=== PATIENT | female | born 2005 | race Caucasian/White ===

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

== ENCOUNTER → 2023-01-05 | Outpatient (CLI) | payer BC ==
[2023-01-05 21:35] LABS: Immunoglobulin A 67.8 mg/dL (60.0-350.0)
[2023-01-05 21:44] LABS: % Iron Saturation 27.89 (12.00-45.00); C Reactive Protein <0.30 mg/dL (0.00-0.80); Iron 94 UG/DL (50-170); Total Iron Binding Capacity 337 UG/DL (228-460)
== END | disposition home or self-care (01) ==
LOC: LABWHC1 13:13
PROVIDERS: ATTEND Internal Medicine
DX: K30 Functional dyspepsia (principal)
CPT/HCPCS: 36415; 82728; 82784; 83516; 83540; 83550; 86140

== ENCOUNTER → 2023-09-05 | Outpatient (CLI) | payer BC ==
[2023-09-05 15:38] LABS: Basophils # (A) 0.03 X 10*3/uL (0.00-0.10); Basophils % (A) 0.6 %; Eosinophils % (A) 2.1 %; HCT 41.4 % (37.2-46.3); HGB 13.6 g/dL (12.0-15.0); Lymphocytes # (A) 2.23 X 10*3/uL (0.90-5.00); Lymphocytes % (A) 45.9 %; MCHC 32.9 g/dL (32.0-37.0); MCV 88.3 FL (80.0-97.0); Mean Platelet Volume 9.6 FL (9.5-12.2); Monocytes # (A) 0.33 X 10*3/uL (0.20-1.00); Monocytes % (A) 6.8 %; NRBC Per 100 WBC 0 X 10*3/uL (0.00-0.01); Neutrophils # (A) 2.16 X 10*3/uL (1.80-7.70); Neutrophils % (A) 44.4 %; Platelet Count 244 X 10*3/uL (140-440); RBC 4.69 X 10*6/uL (4.10-5.20); RDW 12.4 % (11.5-14.5); WBC 4.86 X 10*3/uL (4.50-10.00)
[2023-09-05 16:31] LABS: % Iron Saturation 13.73 (12.00-45.00); Chol/HDL Ratio 2.69 Ratio; Iron 49 UG/DL (50-170); Total Iron Binding Capacity 357 UG/DL (228-460); VLDL Calculation 7.36 mg/dL (5.00-40.00)
[2023-09-05 16:32] LABS: ALT 14 U/L (8-44); AST 15 U/L (13-35); Albumin 4.3 g/dL (3.8-4.9); Albumin/Globulin Ratio 2.05 Ratio (1.60-3.17); Alkaline Phosphatase 69 U/L (41-126); BUN/Creat Ratio 31.29 Ratio (12.00-20.00); Blood Urea Nitrogen 21.9 mg/dL (9.0-27.0); Calcium 9.4 mg/dL (8.7-10.3); Carbon Dioxide 23.6 mmol/L (21.6-31.8); Chloride 108 mmol/L (96-109); Ferritin 89.6 ng/mL (10.0-291.0); Globulin 2.1 g/dL (1.6-3.3); Glucose 104 mg/dL (70-110); LDL Cholesterol,Calculated 94.3 mg/dL (0.0-131.0); Potassium 4.1 mmol/L (3.5-5.5); Sodium 143 mmol/L (135-145); T4, Free (Free Thyroxine) 1.22 ng/dL (0.83-1.43); Total Bilirubin 0.3 mg/dL (0.3-1.2); Total Protein 6.4 g/dL (6.2-8.2)
[2023-09-05 18:20] LABS: C-Peptide 2.42 ng/mL (0.81-3.85)
[2023-09-06 15:30] LABS: Zinc, Serum 74 ug/dL (60-130)
== END | disposition home or self-care (01) ==
LOC: LABWHC1 08:11
PROVIDERS: ATTEND Surgery
DX: E66.01 Morbid (severe) obesity due to excess calories (principal)
CPT/HCPCS: 36415; 80053; 80061; 82306; 82525; 82607; 82728; 82746; 83036; 83540; 83550; 83970; 84134; 84207; 84425; 84439; 84443; 84481; 84590; 84591; 84630; 84681; 85025

== ENCOUNTER → 2023-09-05 | Outpatient (CLI) | payer BC ==
--- NOTE | 2023-09-05 08:24 | US ---
EXAMINATION TYPE: US abdomen complete DATE OF EXAM: 09/05/2023 COMPARISON: 12/09/2022 CLINICAL INDICATION: Female, 17 years old with history of E66.01 MORBID (SEVERE) OBESITY DUE TO EXCES S CALOR; gastric bypass surgery pre-op imaging TECHNIQUE: Multiple sonographic images of the abdomen are obtained. FINDINGS: EXAM MEASUREMENTS: Liver Length: 16.9 cm Gallbladder Wall: 0.3 cm CBD: 0.4 cm Spleen: 11.9 cm Right Kidney: 10.9x3.5x6.1 cm Left Kidney: 9.5x4.8x6.2 cm NEUROLOGICAL PHYSIOTHERAPIST NOTES: Pancreas: Tail obscured by overlying bowel gas Liver: increased echogenicity Gallbladder: wnl Evidence for sonographic Jensen's sign: No CBD: wnl Spleen: wnl Right Kidney: No hydronephrosis or masses seen Left Kidney: No hydronephrosis or masses seen Upper IVC: wnl Abd Aorta: proximal region obscured by bowel gas exam limited by bowel gas and large body habitus The liver is homogenous with increased echotexture. The intrahepatic portion of the IVC and mid/dst abdominal aorta are within normal limits. There is no evidence of cholelithiasis. Common bile duct is unremarkable. The visualized portions of the pancreas are homogenous. The spleen is unremarkable . Kidneys are symmetric and free of hydronephrosis. No renal lesions are seen. IMPRESSION: 1. No evidence for acute process. 2. Hepatic steatosis.
== END | disposition home or self-care (01) ==
LOC: RADUSWWP 07:32
PROVIDERS: ATTEND Surgery
DX: Z01.818 Encounter for other preprocedural examination (principal); K76.0 Fatty (change of) liver, not elsewhere classified; E66.01 Morbid (severe) obesity due to excess calories
CPT/HCPCS: 76700

== ENCOUNTER 2024-08-06 23:26 | Emergency (ER) | payer BC ==
--- NOTE | 2024-08-07 00:58 | ED ---
Skin/Abscess/FB HPI - General Chief complaint: Skin/Abscess/Foreign Body Stated complaint: cyst on tailbone/pain on tailbone Time Seen by Provider: 08/06/24 23:43 Source: patient, RN notes reviewed Mode of arrival: ambulatory Limitations: no limitations - History of Present Illness Initial comments: This is a 18-year-old female presenting for cyst on right superior gluteal cleft x 9 days. Patient states she is unsure of cause but has been having worsening pain in area, especially when seated. Denies recent trauma to area, bleeding, discharge, fever, history of same. MD complaint: abscess/boil Onset/Timin -: days(s) Location: buttocks Improves with: immobilization Worsens with: palpation Context: none Associated symptoms: denies other symptoms - Related Data Home Medications Medication Instructions Recorded Confirmed Sertraline [Zoloft] 100 mg PO DAILY 10/14/20 02/01/22 cloNIDine HCL [Catapres] 0.1 mg PO HS 10/14/20 02/01/22 Dicyclomine [Bentyl] 10 mg PO TID 02/01/22 02/01/22 Omeprazole [PriLOSEC] 20 mg PO BID 02/01/22 02/01/22 predniSONE See Taper PO DIRECTED 02/01/22 02/01/22 Previous Rx's Medication Instructions Recorded Ondansetron Odt [Zofran Odt] 4 mg PO Q8HR PRN #15 tab 07/25/22 Cephalexin [Keflex] 500 mg PO Q6HR 1 Days #28 cap 08/07/24 Sulfamethox-Tmp 800-160Mg [Bactrim 1 tab PO Q12HR #20 tab 08/07/24 DS 800-160 mg] Allergies Allergy/AdvReac Type Severity Reaction Status Date / Time No Known Allergies Allergy Verified 08/06/24 23:31 Review of Systems ROS Statement: Those systems with pertinent positive or pertinent negative responses have been documented in the HPI. ROS Other: All systems not noted in ROS Statement are negative. Past Medical History Past Medical History: No Reported History History of Any Multi-Drug Resistant Organisms: ESBL Date of last positivie culture/infection: 12/09/2014 MDRO Source:: urine E.coli Past Surgical History: No Surgical Hx Reported Additional Past Surgical History / Comment(s): gastric bypass Past Psychological History: Anxiety, Depression Smoking Status: Former smoker Past Alcohol Use History: None Reported Past Drug Use History: None Reported General Exam Limitations: no limitations General appearance: alert, in no apparent distress Head exam: Present: atraumatic, normocephalic, normal inspection Eye exam: Present: normal appearance, PERRL, EOMI. Absent: scleral icterus, conjunctival injection, periorbital swelling ENT exam: Present: normal exam, mucous membranes moist Neck exam: Present: normal inspection. Absent: tenderness, meningismus, lymphadenopathy Respiratory exam: Present: normal lung sounds bilaterally. Absent: respiratory distress, wheezes, rales, rhonchi, stridor Cardiovascular Exam: Present: regular rate, normal rhythm, normal heart sounds. Absent: systolic murmur, diastolic murmur, rubs, gallop, clicks GI/Abdominal exam: Present: soft, normal bowel sounds. Absent: distended, tenderness, guarding, rebound, rigid Extremities exam: Present: normal inspection, full ROM, normal capillary refill. Absent: tenderness, pedal edema, joint swelling, calf tenderness Back exam: Present: other (Positive fluctuant, tender abscess, 2 cm in diameter on the right superior gluteal fold without overlying erythema or discharge) Neurological exam: Present: alert, oriented X3, CN II-XII intact Psychiatric exam: Present: normal affect, normal mood Skin exam: Present: warm, dry, intact, normal color. Absent: rash Course Vital Signs 08/06/24 08/07/24 23:29 01:51 Temperature 98 F 98.4 F Pulse Rate 86 79 Respiratory 18 19 Rate Blood Pressure 134/83 131/79 O2 Sat by Pulse 100 98 Oximetry Procedures - Incision & Drainage Consent Obtained: verbal consent Indication: Abscess Site: buttock Anesthetic Used: lidocaine 1%, with epi I&D Cleaning Method: Betadine Sterile Field Used?: No Complications: pain (Procedure halted by patient due to pain intolerance experienced by patient during initial injection of lidocaine with epi) Medical Decision Making - Medical Decision Making Was pt. sent in by a medical professional or institution (, PA, LEATHER HEEL BREASTER, urgent care, hospital, or half-way...) When possible be specific @ -No Did you speak to anyone other than the patient for history (EMS, parent, family, police, friend...)? What history was obtained from this source @ -No Did you review nursing and triage notes (agree or disagree)? Why? @ -I reviewed and agree with nursing and triage notes Were old charts reviewed (outside hosp., previous admission, EMS record, old EKG, old radiological studies, urgent care reports/EKG's, half-way records)? Report findings @ -No old charts were reviewed Differential Diagnosis (chest pain, altered mental status, abdominal pain women, abdominal pain men, vaginal bleeding, weakness, fever, dyspnea, syncope, headache, dizziness, GI bleed, back pain, seizure, CVA, palpatations, mental health, musculoskeletal)? @ -Differential Musculoskeletal Muscular strain, contusion, ligament sprain, fracture, arthritis, septic arthritis, bursitis, cellulitis, muscle spasm, nerve compression, DVT, arterial occlusion, herpes zoster, electrolyte abnormality, tumor.... This is not meant to be in all inclusive list EKG interpreted by me (3pts min.). @ -Not done X-rays interpreted by me (1pt min.). @ -None done CT interpreted by me (1pt min.). @ -None done U/S interpreted by me (1pt. min.). @ -None done What testing was considered but not performed or refused? (CT, X-rays, U/S, labs)? Why? @ -None What meds were considered but not given or refused? Why? @ -None Did you discuss the management of the patient with other professionals (professionals i.e. , PA, LEATHER HEEL BREASTER, lab, RT, psych nurse, director social welfare, supervisor speech, teacher, security officer supervisor, case coordinator)? Give summary @ -No Was smoking cessation discussed for >3mins.? @ -No Was critical care preformed (if so, how long)? @ -No Were there social determinants of health that impacted care today? How? (Homelessness, low income, unemployed, alcoholism, drug addiction, transportation, low edu. Level, literacy, decrease access to med. care, snf, rehab)? @ -No Was there de-escalation of care discussed even if they declined (Discuss DNR or withdrawal of care, Hospice)? DNR status @ -No What co-morbidities impacted this encounter? (DM, HTN, Smoking, COPD, CAD, Cancer, CVA, ARF, Chemo, Hep., AIDS, mental health diagnosis, sleep apnea, morbid obesity)? @ -None Was patient admitted / discharged? Hospital course, mention meds given and route, prescriptions, significant lab abnormalities, going to OR and other pertinent info. @ -Attempted I&D of abscess performed with patient deferring due to pain experienced during initial injection of lidocaine with epi. Patient provided initial dose of p.o. Keflex and Bactrim DS. Remaining Keflex and Bactrim DS regimen sent to patient's pharmacy. Advise continue warm compresses for 10 minutes up to 4 times daily. Follow-up with PCP for any ongoing or worsening symptoms. Discussed patient with Dr. Gallego. Undiagnosed new problem with uncertain prognosis? @ -No Drug Therapy requiring intensive monitoring for toxicity (Heparin, Nitro, Insulin, Cardizem)? @ -No Were any procedures done? @ -Attempted I&D. Initial injection of lidocaine with epi performed with patient noting significant pain during injection. Patient deferring on procedure due to anxiety and pain experienced. Diagnosis/symptom? @ -Pilonidal cyst Acute, or Chronic, or Acute on Chronic? @ -Acute Uncomplicated (without systemic symptoms) or Complicated (systemic symptoms)? @ -Uncomplicated Side effects of treatment? @ -No Exacerbation, Progression, or Severe Exacerbation? @ -No Poses a threat to life or bodily function? How? (Chest pain, [place], [place], pneumonia, PE, COPD, DKA, ARF, appy, cholecystitis, CVA, Diverticulitis, Homicidal, Suicidal, threat to staff... and all critical care pts) @ -No Disposition Clinical Impression: Pilonidal cyst Disposition: HOME SELF-CARE Condition: Good Instructions (If sedation given, give patient instructions): Pilonidal Cyst (ED) Additional Instructions: Warm compresses for 10 minutes up to 4 times daily. Follow-up with PCP/general surgery if abscess should recur. Prescriptions: Sulfamethox-Tmp 800-160Mg [Bactrim DS 800-160 mg] 1 tab PO Q12HR #20 tab Cephalexin [Keflex] 500 mg PO Q6HR 1 Days #28 cap Is patient prescribed a controlled substance at d/c from ED?: No Referrals: Nhung Nickerson MD [Primary Care Provider] - 1-2 days Olivia Maldonado MD [STAFF PHYSICIAN] - 1-2 days Time of Disposition: 01:42
[2024-08-07] MEDS: SULFAMETHOX-TMP 800-160MG 1 EACH TAB PO STA (01:05)
[2024-08-07] MEDS: LIDOCAINE 1%-EPI 1:100,000 20 ML VIAL SQ ONE (01:06)
[2024-08-07] MEDS: CEPHALEXIN 500 MG CAP PO STA (01:46)
[2024-08-07 01:53] VITALS: BP 131/79; PULSE 79; RESP 19; TEMP 98.4
== END 2024-08-07 01:53 | disposition home or self-care (01) ==
LOC: EC 23:26
DX: L05.91 Pilonidal cyst without abscess (principal); Z87.891 Personal history of nicotine dependence
CPT/HCPCS: 10080; 99282